=== PATIENT | female | born 1960 | race Caucasian/White ===

== ENCOUNTER → 2016-05-06 | Outpatient (CLI) | payer BC ==
--- NOTE | 2016-05-13 11:18 | MM ---
Reason for exam: screening (asymptomatic). Last mammogram was performed 9 years ago. History: Patient is postmenopausal. Benign stereotactic core biopsy of the left breast, June 24, 2000. Core biopsy of the left breast. Physical Findings: A clinical breast exam by your physician is recommended on an annual basis and results should be correlated with mammographic findings. MG Screening Mammo w CAD Bilateral CC and MLO view(s) were taken. Prior study comparison: May 05, 2007, bilateral digital screening mammogram. December 06, 2003, bilateral diagnostic mammogram. There are scattered fibroglandular densities. Finding: There is an high irregular mass in the upper outer quadrant of the left breast. Previous mammotome biopsy in the left breast. ASSESSMENT: Incomplete: need additional imaging evaluation, BI-RAD 0 RECOMMENDATION: Special view mammogram of the left breast. [facility] will attempt to contact patient to return for supplemental views.
== END | disposition home or self-care (01) ==
LOC: RADMAMWWP 16:29
PROVIDERS: ATTEND Family Medicine
DX: Z12.31 Encounter for screening mammogram for malignant neoplasm of breast (principal)

== ENCOUNTER 2016-06-30 04:32 | Emergency (ER) | payer BC ==
[2016-06-30 04:39] VITALS: RESP 18
[2016-06-30] MEDS ORDERED: MAG HYDROX/AL HYDROX/SIMETH 30 ML, HYOSCYAMINE ELIXIR 10 ML, CIMETIDINE HCL 300 MG, LID... PO STA ×4 (05:19)
[2016-06-30] MEDS ORDERED: ASPIRIN 81 MG CHEW PO STA (05:20)
[2016-06-30] MEDS ORDERED: NITROGLYCERIN SL TABS 0.4 MG TAB SUBLINGUAL STA (05:20)
--- NOTE | 2016-06-30 05:24 | ED ---
Chest Pain HPI - General Chief Complaint: Chest Pain Stated Complaint: Abd/chest pain Time Seen by Provider: 06/30/16 04:54 Source: patient Mode of arrival: wheelchair Limitations: no limitations - History of Present Illness Initial Comments: This patient is a 56-year-old woman who presents to be evaluated for epigastric and substernal pains that came on between 2-3 hours before she came here to be evaluated. Patient states that she had been sleeping and then woke with symptoms. She tried to walk around the home and works to help belch to try and relieve chest type sensation. She states that the walking did not bring any relief though did not make things worse. When the symptoms continued she decided to be seen here. Patient denies any anginal type symptoms, including no diaphoresis, dyspnea, nausea or vomiting, lightheadedness, palpitations or syncope. There are no symptoms in the legs, no calf pain or swelling. MD Complaint: chest pain Onset/Timin -: hour(s) Onset: during rest Pain Location: substernal, epigastric Pain Radiation: none Severity: severe Quality: other (Pressure) Consistency: constant Improves With: nothing Worsens With: nothing Treatments Prior to Arrival: none - Related Data Home Medications Medication Instructions Recorded Confirmed Esomeprazole Magnesium [NexIUM] 20 mg PO TID 06/30/16 06/30/16 Allergies Allergy/AdvReac Type Severity Reaction Status Date / Time latex Allergy Swelling Verified 06/30/16 04:39 Review of Systems ROS Statement: Those systems with pertinent positive or pertinent negative responses have been documented in the HPI. ROS Other: All systems not noted in ROS Statement are negative. Constitutional: Denies: fever, chills Respiratory: Denies: cough, dyspnea Cardiovascular: Reports: as per HPI, chest pain. Denies: palpitations, dyspnea on exertion, edema, syncope Gastrointestinal: Reports: as per HPI, abdominal pain. Denies: nausea, vomiting Genitourinary: Denies: dysuria, hematuria Musculoskeletal: Denies: back pain Skin: Denies: rash Neurological: Denies: headache, weakness, numbness EKG Findings - EKG Results: EKG: interpreted by ARTHUR DUBOSE, sinus rhythm (Rate 72 bpm), normal axis, normal QRS, normal ST/T, no acute changes - MD, Pacemaker, Normal: Normal tracing: normal tracing Past Medical History Past Medical History: GERD/Reflux Additional Past Medical History / Comment(s): Hiatal Hernia History of Any Multi-Drug Resistant Organisms: None Reported Past Surgical History: Adenoidectomy, Section, Hysterectomy, Tonsillectomy Additional Past Surgical History / Comment(s): Ignacio Fundoplication Past Psychological History: No Psychological Hx Reported Smoking Status: Former smoker Past Alcohol Use History: Occasional Past Drug Use History: None Reported General Exam Limitations: no limitations General appearance: alert, in no apparent distress, obese Head exam: Present: atraumatic, normocephalic Eye exam: Present: normal appearance. Absent: scleral icterus, conjunctival injection ENT exam: Present: normal oropharynx Neck exam: Present: normal inspection, full ROM Respiratory exam: Present: normal lung sounds bilaterally. Absent: respiratory distress, wheezes, rales, rhonchi, stridor, chest wall tenderness Cardiovascular Exam: Present: regular rate, normal rhythm, normal heart sounds. Absent: systolic murmur, diastolic murmur, rubs, gallop GI/Abdominal exam: Present: soft. Absent: distended, tenderness, guarding, rebound, mass, pulsatile mass Extremities exam: Present: normal inspection, normal capillary refill. Absent: pedal edema, calf tenderness Back exam: Present: normal inspection. Absent: CVA tenderness (R), CVA tenderness (L) Neurological exam: Present: alert Skin exam: Present: warm, dry, intact, normal color. Absent: rash Course Vital Signs 06/30/16 06/30/16 06/30/16 04:36 05:47 06:30 Temperature 96.9 F L Pulse Rate 83 78 59 L Respiratory 18 18 18 Rate Blood Pressure 166/79 148/79 140/74 O2 Sat by Pulse 98 98 99 Oximetry Disposition Clinical Impression: Chest pain Disposition: HOME SELF-CARE Condition: Good Instructions: Chest Pain (ED) Referrals: Jamila Ferris DO [Primary Care Provider] - 1-2 days Celeste Perez MD [STAFF PHYSICIAN] - 1-2 days
[2016-06-30 06:04] LABS: Basophils # (A) 0.1 k/uL (0-0.2); Basophils % (A) 1 %; CH 29.7; CHCM 33.7; Eosinophils # (A) 0.2 k/uL (0-0.7); Eosinophils % (A) 2 %; HCT 40.4 % (34.0-46.0); HGB 13.7 gm/dL (11.4-16.0); Luc # (Auto) 0.22; Luc % (Auto) 2; Lymphocytes # (A) 2.5 k/uL (1.0-4.8); Lymphocytes % (A) 25 %; MCHC 33.9 g/dL (31.0-37.0); MCV 88.4 fL (80.0-100.0); Mean Platelet Volume 6.3; Monocytes # (A) 0.5 k/uL (0-1.0); Monocytes % (A) 5 %; Neutrophils # (A) 6.5 k/uL (1.3-7.7); Neutrophils % (A) 65 %; RBC 4.57 m/uL (3.80-5.40); RDW 13.3 % (11.5-15.5); WBC (Perox) 9.78
[2016-06-30 06:16] LABS: Partial Thromboplastin Time 28.5 sec (22.0-30.0); Prothrombin Time 9.9 sec (9.0-12.0)
--- NOTE | 2016-06-30 06:21 | XR ---
EXAM: Single view of the chest. INDICATION: Chest pain. COMPARISON: None. FINDINGS: Single frontal view demonstrates a normal cardiomediastinal silhouette. The lungs are clear. No pleural effusions. The visualized osseous structures are within normal limits. IMPRESSION: No acute cardiopulmonary disease.
[2016-06-30 06:30] LABS: ALT 37 U/L (9-52); AST 22 U/L (14-36); Alkaline Phosphatase 99 U/L (38-126); Amylase 55 U/L (30-110); Anion Gap 13 mmol/L; Blood Urea Nitrogen 14 mg/dL (7-17); Calcium 9.5 mg/dL (8.4-10.2); Carbon Dioxide 24 mmol/L (22-30); Chloride 103 mmol/L (98-107); Glucose 127 mg/dL (74-99); Magnesium 1.9 mg/dL (1.6-2.3); Non-African American GFR(MDRD) >60 (>60 ml/min/1.73 sqM); Potassium 4.1 mmol/L (3.5-5.1); Sodium 140 mmol/L (137-145); Total Bilirubin 0.5 mg/dL (0.2-1.3); Total Protein 7.4 g/dL (6.3-8.2)
[2016-06-30 07:22] VITALS: BP 108/58; PULSE 56; TEMP 97.6
== END 2016-06-30 07:22 | disposition home or self-care (01) ==
LOC: EC 04:32
DX: R07.2 Precordial pain (principal); R10.13 Epigastric pain; K21.9 Gastro-esophageal reflux disease without esophagitis; Z87.891 Personal history of nicotine dependence; Z79.899 Other long term (current) drug therapy; Z91.040 Latex allergy status
CPT/HCPCS: 36415; 71010; 80053; 82150; 83690; 83735; 84484; 85025; 85379; 85610; 85730; 93005; 99285

== ENCOUNTER 2018-09-09 07:02 | Day surgery (SDC) | payer BC ==
[2018-09-03 16:04] VITALS: BMI 32.2
[~2018-09-09 07:02] MED LIST: LACTATED RINGERS 1,000 ML IV SCH
[2018-09-09 07:21] VITALS: TEMP 97.7
[2018-09-09] MEDS ORDERED: LIDOCAINE 1% 20 ML VIAL (10MG/ML) FOR IV START INTRADERMA ONE (07:29)
[2018-09-09] MEDS ORDERED: LACTATED RINGERS 1,000 ML IV ONE (08:40)
--- NOTE | 2018-09-09 09:17 | FL ---
Fluoroscopy HISTORY: Pain 6 seconds fluoroscopy time supplied to the referring clinician. 1 intraoperative C-arm images docume nt the procedure. See dictated report from anesthesia.
--- NOTE | 2018-09-09 09:40 | P.PCN ---
Date of Procedure: 09/09/18 Procedure(s) Performed: Preoperative diagnosis: Possible Multiple sclerosis, raised intracranial press ure Post operative diagnoses: Possible Multiple sclerosis , raised intracranial pressure Anesthesia local infiltration with lidocaine 1% 2 mL. Procedure: Lumbar puncture with fluoroscopy Fluoroscopy was used and images were saved to the patient's chart Condition: stable Complication: none. Description of the procedure Procedure risk and benefits discussed with the patient and family, consent sig mirtha. Patient was taken to the procedure area placed in lateral position. Local infiltration of the skin and subcutaneous tissue with lidocaine 1%. A 22-gauge Quincke-type needle advanced slowly at L4- 5 interlaminar space using fluoroscopy guidance. Opening pressure was measured at 23 mm H2O. CSF was collected. A total of 18 ML of clear cerebrospinal fluid collected in 4 different tubes The needle was removed and a Band-Aid applied and patient tolerated the procedure well without any complications. The patient was made to lie flat in the recovery room for 2 hours. She was then discharged home in stable condition.
[2018-09-09 10:05] VITALS: BP 133/81; PULSE 49; RESP 16
[2018-09-11 12:34] LABS: IgG - CSF 2.6 mg/dL (0.0 - 3.4); IgG/Albumin Index (CSF) 0.42 (0.00 - 0.77)
== END 2018-09-09 11:01 | disposition home or self-care (01) ==
LOC: ORPAIN 07:02
PROVIDERS: ATTEND Anesthesiology
DX: G93.2 Benign intracranial hypertension (principal); Z91.040 Latex allergy status; Z90.710 Acquired absence of both cervix and uterus
CPT/HCPCS: 62270; 82040; 82042; 82784; 83916; 99152; 99153